=== PATIENT | female | born 1960 | race Caucasian/White ===

== ENCOUNTER 2017-06-12 07:06 | Emergency (ER) | payer OTHER ==
[~2017-06-12] VITALS: Ht 134.6 cm; Wt 33.3 kg
[~2017-06-12 07:06] MED LIST: ACETAMINOP160 MG/51 GT; ACETAMINOPHEN650 M4 PR; ATORVASTATIN CA20 MG GT; BACLOFEN10 MG GT; BACLOFEN10 MG PO; CELONTIN300 MG GT; CELONTIN300 MG PO; CHILDREN'S MOT120 M2 GT; CHILDREN'S160 MG/18 GT; CITRATE OF MAG296 ML GT; CLEOCIN T30 GM TP; CLINDESSE5.8 GM TP; DECO GT; DIASTAT ACUDIAL10 MG PR; DIAZEPAM10 MG GT; DULCOLAX10 MG PR; EAR WAX DROPS15 ML BOTH EARS; ERGOCALCIF8000 UNIT/ GT; ERGOCALCIF8000 UNIT/ PO; FLEET ENEMA-AD118 ML PR; FLORA-Q CAPSUL1 EACH GT; FLORA-Q CAPSUL1 EACH PO; GLYCOPYRROLATE1 MG GT; GLYCOPYRROLATE1 MG PO; KEFLEX PEG; KEPPRA ORAL100 MG/ML GT; KEPPRA100 MG/1 M GT; KEPPRA100 MG/1 M PO; LAMOTRIGINE200 MG GT; LIORESAL10 MG G-TUBE; LIPITOR20 MG GT; LIPITOR20 MG PO; LIPITOR40 MG GT; LaMICtal PO; MOTRIN400 M1 GT; Miralax, Glycolax PO; NEXIUM20 M1 PO; NEXIUM20 MG GT; NEXIUM40 M1 PO; NEXIUM40 MG GT; NEXIUM5 MG PO; PHENERGAN25 MG PR; POTASSIUM CHLO10 ME3 PO; PREVACID SOLUTA30 M1 GT; PROMETHAZINE HC25 MG PR; Q-TUSSIN DM SY240 ML GT; REGLAN10 MG PO; REGLAN5 MG GT; ROBINUL FORTE2 MG GT; ROBINUL1 MG GT; ROBITUSSIN DM1 ML GT; SILVER NITRATE1 EACH TP; TYLENOL650 MG PR; VALIUM10 MG GT; VITAMIN D250000 UNIT IR; ZOFRAN ODT8 MG PO; ZOFRAN0.8 MG/1 M GT; [UNRECOGNIZED DRUG - CODE] GT; [UNRECOGNIZED DRUG - CODE] PO; [UNRECOGNIZED DRUG - OTHER] GT
[2017-06-12 09:28] VITALS: BP 93/57
== END 2017-06-12 09:28 | disposition home or self-care (01) ==
LOC: EME 07:06
PROC: 0D20XUZ Change Feeding Device in Upper Intestinal Tract, External Approach (ICD-10-PCS; principal; 2017-06-12)
DX: Z43.1 Encounter for attention to gastrostomy (principal); F84.0 Autistic disorder; F79 Unspecified intellectual disabilities
CPT/HCPCS: 74000; 99281; 99283

== ENCOUNTER 2017-07-05 10:33 | Emergency (ER) | payer OTHER ==
[~2017-07-05] VITALS: Ht 144.8 cm; Wt 30.5 kg
[2017-07-05 14:14] VITALS: BP 115/81
== END 2017-07-05 14:15 | disposition home or self-care (01) ==
LOC: EME 10:33
PROC: 0D20XUZ Change Feeding Device in Upper Intestinal Tract, External Approach (ICD-10-PCS; principal; 2017-07-05)
DX: K94.23 Gastrostomy malfunction (principal); K94.22 Gastrostomy infection; E78.5 Hyperlipidemia, unspecified; F84.0 Autistic disorder; K21.9 Gastro-esophageal reflux disease without esophagitis; K44.9 Diaphragmatic hernia without obstruction or gangrene; M81.0 Age-related osteoporosis without current pathological fracture; Z88.8 Allergy status to other drugs, medicaments and biological substances
CPT/HCPCS: 74000; 99281; 99283; B4087